=== PATIENT | female | born 1945 | race Caucasian/White ===

== ENCOUNTER 2016-11-28 14:06 | Observation (INO) | payer MEDICARE, MEDICAID ==
--- NOTE | 2016-11-28 15:04 | RAD ---
Study: Frontal and Lateral Views of the Chest. Indication: syncope Comparison: December 21, 2008. Impression: Cardiomegaly. Thoracic aorta tortuous without atherosclerotic calcification. Mild bibasilar atelectasis. Otherwise, lungs clear. Degenerative changes of the spine noted. Electronically signed by: Darryl Trujillo MD 11/28/2016 15:03
--- NOTE | 2016-11-28 15:04 | CT ---
Study: CT of the Head. Indication: syncope Technique: Axial CT images of the head were acquired without intravenous contrast. Comparison: None. Findings: No CT evidence of acute ischemia, acute hemorrhage, mass, mass effect, midline shift, or extra-axial fluid collection. Ventricles are normal in configuration without hydrocephalus. Brain parenchyma demonstrates a normal appearance for patient age. Paranasal sinuses are adequately aerated. Mastoid air cells are adequately aerated. Large left frontal subcutaneous hematoma noted without underlying fracture. Impression: 1. No CT evidence of acute intracranial abnormality. 2. Large left frontal subcutaneous hematoma without underlying fracture. Electronically signed by: Darryl Trujillo MD 11/28/2016 15:02
[2016-11-28] MEDS ORDERED: cloNIDine HCL 0.1 MG TAB PO ONE (17:20)
--- NOTE | 2016-11-28 17:24 | ED.PDOC ---
History of Present Illness - General Chief Complaint: Trauma Stated Complaint: fall, hit face Time Seen by Provider: 11/28/16 14:17 Source: patient Exam Limitations: no limitations - History of Present Illness Initial Comments: the patient is 71-year-old female presenting to the emergency room secondary to syncopal episode while sitting down at the lunch table. As she was passing out she had her head on the table and sustained a three-quarter and laceration above the left eyebrow as well as a small contusion over the nasal bridge and a few small abrasions over the nose. No other injuries from the fall. She has not had previous syncopal episodes. She had no chest pains or palpitations. She had no shortness of breath. Syncope was only momentary. It was witnessed. Other than being sore she feels just fine now. She is alert and oriented 4 and neurologically intact. She does have a history of high blood pressure and takes her medications primarily at night. She had not eaten lunch yet and had apparently only had a small breakfast. Timing/Duration: momentarily Severity: moderate Improving Factors: nothing Worsening Factors: nothing Associated Symptoms: denies symptoms Allergies/Adverse Reactions: Allergies NO KNOWN ALLERGY Allergy (Verified 11/28/16 14:47) Review of Systems - Review of Systems Constitutional: States: no symptoms reported EENTM: States: nose pain Respiratory: States: no symptoms reported Cardiology: States: no symptoms reported Gastrointestinal/Abdominal: States: no symptoms reported Genitourinary: States: no symptoms reported Musculoskeletal: States: no symptoms reported Skin: States: see HPI Neurological: States: no symptoms reported All other Systems: No Change from Baseline Past Medical History (General) - Patient Medical History Hx Stroke: No Hx Congestive Heart Failure: No Hx Hypertension: Yes Hx Diabetes: No - Vaccination History Hx Tetanus, Diphtheria Vaccination: No Hx Influenza Vaccination: No Hx Pneumococcal Vaccination: No - Social History Hx Tobacco Use: No Family Medical History - Family History Mother Living Status: Cause of : cancer, unknown primary Hx Family;Other: dementia Physical Exam - Physical Exam General Appearance: Alert, Comfortable, No apparent distress Eye Exam: bilateral normal Ears, Nose, Throat: hearing grossly normal, other - the patient has mild epistaxis from the right nares. She has some bruising over the proximal nasal bridge. She has very small abrasion to the proximal and distal nose. These do not require any repair. No bony deformity otherwise. Neck: full range of motion, supple, normal inspection Respiratory: chest non-tender, lungs clear, normal breath sounds, no respiratory distress, no accessory muscle use Cardiovascular/Chest: normal peripheral pulses, regular rate, rhythm, no edema Peripheral Pulses: radial,right: 2+, radial,left: 2+ Gastrointestinal/Abdominal: normal bowel sounds, non tender, soft Rectal Exam: deferred Back Exam: normal inspection, no CVA tenderness, no vertebral tenderness Extremity: normal range of motion, non-tender, normal inspection, no pedal edema , normal capillary refill Neurologic: alert, normal mood/affect, oriented x 3 Skin Exam: normal color Comments: Vital Signs - 24 hr 11/28/16 14:12 Temperature 99.2 F Pulse Rate [ 72 Left Radial] Respiratory 20 Rate Blood Pressure 146/66 [Right Arm] O2 Sat by Pulse 91 L Oximetry Progress - Progress Progress: 11/28/16 17:26 the patient is 71 years old with a syncopal episode. Repeat cardiac enzymes are negative. Source of syncope is uncertain. She is moderately hypertensive and is receiving a dose of clonidine. of note however,on tilt testing, the patient does have a 40 point drop in her systolic blood pressure with standing. She is still technically normotensive with this but there is a significant drop. There is no compensatory tachycardia. She is asymptomatic with it. current hypertension may be reactive due to the fall. She does have some EKG changes that are not necessarily acute. for this reason I would like her to be monitored on telemetry monitoring for the next 24 hours. She will need carotid Dopplers at some point. The patient has agreed to this plan. 11/28/16 17:29 three-quarter inch superficial laceration above the left eyebrow:risk and benefits of repair explained and patient agrees to proceed. Wound is cleaned with hydrogen peroxide. Dermabond used for reapproximation. Patient tolerated repair well. Good hemostasis. 11/28/16 17:31 - Results/Orders Results/Orders: Laboratory Tests 11/28/16 11/28/16 11/28/16 14:18 14:55 16:45 WBC 8.5 RBC 5.06 Hgb 14.6 Hct 44.8 MCV 88.5 MCH 28.8 MCHC 32.5 L RDW 14.7 H Plt Count 116 L MPV 8.8 Absolute Neuts (auto) 5.50 Absolute Lymphs (auto) 2.10 Absolute Monos (auto) 0.60 Absolute Eos (auto) 0.20 Absolute Basos (auto) 0.00 Neutrophils % 65.4 Lymphocytes % 25.1 Monocytes % 6.6 Eosinophils % 2.5 Basophils % 0.4 PT 11.5 INR 1.020 PTT (SP) 34.4 Sodium 141 Potassium 4.0 Chloride 106 Carbon Dioxide 28 Anion Gap 11.0 L BUN 22 H Creatinine 0.75 BUN/Creatinine Ratio 29.3 H Random Glucose 124 H Serum Osmolality 286.0 Calcium 9.1 Magnesium 1.8 Total Bilirubin 1.7 H AST 26 ALT 13 Alkaline Phosphatase 56 Creatine Kinase 78 109 CK-MB (CK-2) 2.0 2.2 CK-MB (CK-2) % Not Reportable Not Reportable Troponin I < 0.02 < 0.02 B-Natriuretic Peptide 54.2 Serum Total Protein 7.5 Albumin 3.7 Globulin 3.8 H Albumin/Globulin Ratio 1.0 L urinalysis is still pending. EKG shows poor R-wave progression in anterior leads. We do not have an old EKG to compare to. Normal sinus rhythm. Normal axis. Head CT shows no evidence of any acute pathology or hydrocephalus. No evidence of fracture. Chest x-ray shows no acute changes. No infiltrate. No pneumothorax. No significant cardiomegaly. Departure - Departure Clinical Impression: Syncope Qualifiers: Syncope type: unspecified Qualifier Code: (R55) Syncope and collapse Laceration of head Qualifiers: Encounter type: initial encounter Location of open wound of head: periocular area Foreign body presence: without foreign body Laterality: left Qualifier Code : (S01.112A) Laceration without foreign body of left eyelid and periocular area , initial encounter Disposition: Admit Patient Departure Forms: ED Discharge - Pt. Copy, Patient Portal Self Enrollment Decision To Admit - Decistion To Admit Decision to Admit Reason: Medical Nature Decision to Admit Date: 11/28/16 Decision to Admit Time: 17:30
--- NOTE | 2016-11-28 18:39 | HP ---
HISTORY OF PRESENT ILLNESS: This 71-year-old, white female was admitted to the hospital via the Emergency Room after sudden loss of consciousness while sitting down and eating some food at about 1:30 PM this afternoon. She was at home alone at the time in her kitchen with her daughter outside. She got lightheaded and then with no memory of it, falling to the floor, striking the left side of her head on the floor. She awoke before her daughter came in to find her and was able to be fairly alert at that time. No previous history of similar syncopal episodes in the past. No history of cardiac rhythm disturbances. She does have a history of high blood pressure on Bystolic. She is followed closely in [facility] and has been for a number of years care for by Dr. Solis in the clinic. She is placed in the hospital for overnight observation and further investigation to rule out other significant causes contributing to her symptoms. Of note is that in the Emergency Room, the did a tilt blood pressure, pulse and she had over 45 systolic point decrease from supine to standing, yet her pulse stayed the same, suggesting an autonomic dysfunction. PAST MEDICAL HISTORY: 1. Hypertension. 2. She has had 6 children. PAST SURGICAL HISTORY: 1. Gallbladder. 2. Bilateral tubal ligation in 1972. FAMILY HISTORY: Positive for diabetes. SOCIAL HISTORY: She has worked in the service industry with food prep, dish cleaning and homemaking. She has never smoked. REVIEW OF SYSTEMS: CONSTITUTIONAL: Her weight has been over 300 pounds up until 6 years ago and now she is at a lower weight, but she does not know what her weight is now, but she has been trying to lose weight. HEENT: No hearing or vision disturbances. LUNGS: No significant shortness of breath, cough, or hemoptysis. CARDIOVASCULAR: No palpitations or chest pains. ABDOMEN: No nausea, vomiting, diarrhea, or blood in the stools. GENITOURINARY: No dysuria. NEUROLOGIC: No significant headache except where she fell this evening and the syncopal episode has not been present in the past. PHYSICAL EXAMINATION: VITAL SIGNS: Afebrile. Pulse 75. Blood pressure 141/94, up to 141/110 with pulse oximetry around 93% room air. Respirations 20. Weight to be taken. GENERAL: The patient is fairly awake, alert and oriented. She is a good historian. HEENT: She has a large ecchymosis and swelling around the left eye with some skin lacerations, which have been repaired with skin adhesives. Mild conjunctival irritation is evident on the left. NECK: Supple with no adenopathy. CHEST: Lungs generally clear to auscultation. Able to breathe deeply with no cough. CARDIOVASCULAR: No irregular pulses evident. Heart tones otherwise normal. ABDOMEN: Obese, soft, no organomegaly, masses or tenderness noted upon palpation. Bowel tones present. EXTREMITIES: Fairly good muscle tone. NEUROLOGIC: No focal neurological deficits. The patient is awake, alert, oriented and communicative. Loss of consciousness noted earlier this afternoon with syncope. LABORATORY: White count 8,500, hemoglobin 14.6. INR 1.02. Chemistries show potassium 4, BUN 22, creatinine 0.75, glucose 124, magnesium 1.8, bilirubin 1.7. Liver enzymes normal. Troponin 0. Beta natriuretic peptide 54. Albumin 3.7. Urinalysis pending. CT of the head does reveal large frontal subcutaneous hematoma without underlying fracture. No acute intracranial abnormalities noted. Chest x-ray is performed and shows cardiomegaly with aortic calcification with lungs clear except for some bibasilar atelectasis. ASSESSMENT: 1. Acute syncopal episode, new onset with loss of consciousness. 2. Blunt head injury with large laceration, repaired around the left orbit with hematoma and ecchymosis. 3. Positive blood pressure-pulse tilt, suggesting autonomic dysfunction. 4. Hypertension. 5. Obesity. PLAN: The patient is placed in the hospital for observation overnight with telemetry and close nursing neuro vitals. Suggest carotid ultrasound in the morning. Repeat cardiac enzymes in the morning. Try sequential compression devices tonight. Soft diet. Observe closely with some cool compresses to the swollen eye and close followup in [facility] upon discharge when stable. #[id number] [facility]
[2016-11-28] MEDS ORDERED: MAGNESIUM HYDROXIDE 30 ML UD PO PRN (19:00)
[2016-11-28] MEDS ORDERED: IV SET AND CAP CHANGE INJ INJ SCH (19:00)
[2016-11-28] MEDS ORDERED: SODIUM CHLORIDE 0.9% (FLUSH) 10 ML SYG IV PRN (19:00)
[2016-11-28] MEDS ORDERED: ACETAMINOPHEN 325 MG TAB PO PRN (19:00)
[2016-11-28] MEDS: SODIUM CHLORIDE 0.9% 1000ML 1,000 ML IVS PRN (19:57)
[2016-11-28] MEDS ORDERED: NEBIVOLOL 2.5 MG TAB ONE (19:59)
[2016-11-28] MEDS: MELOXICAM 7.5 MG TAB PO SCH (20:31)
[2016-11-28] MEDS: NEBIVOLOL 2.5 MG TAB PO SCH (20:31)
[2016-11-28] MEDS: traZODone HCL 100 MG TAB PO SCH (20:31)
[2016-11-28] MEDS: POTASSIUM CHLORIDE 10 MEQ TAB PO SCH (20:31)
[2016-11-29] MEDS: OMEPRAZOLE CAP 20 MG CAP PO SCH (06:05)
[2016-11-29] MEDS ORDERED: FUROSEMIDE 40 MG TAB ONE (07:18)
[2016-11-29] MEDS: FUROSEMIDE 40 MG TAB PO SCH (08:54)
[2016-11-29] MEDS ORDERED: LISINOPRIL 5 MG TAB PO SCH (09:00)
[2016-11-29] MEDS ORDERED: LISINOPRIL 10 MG TAB PO ONE (09:18)
[2016-11-29] MEDS ORDERED: LISINOPRIL 10 MG TAB ONE (09:25)
[2016-11-29] MEDS ORDERED: SODIUM CHL 0.9% 50ML MIN-BAG+ 50 ML IVPB ONE ×2 (09:25→20:55)
[2016-11-29] MEDS ORDERED: cefTRIAXone SODIUM 1 GM VIAL ONE ×2 (09:26→20:56)
[2016-11-29] MEDS: cefTRIAXone SODIUM 1 GM in SODIUM CHL 0.9% 50ML MIN-BAG+ 50 ML IVPB SCH ×2 (09:27→21:00)
--- NOTE | 2016-11-29 11:09 | US ---
EXAM DESCRIPTION: US CAROTID DOPPLER BILATERAL CLINICAL HISTORY: syncope with LOC COMPARISON: None Available. TECHNIQUE: Carotid Doppler ultrasound FINDINGS: Carotid Doppler ultrasound demonstrates scattered areas of calcified plaque formation in both carotid bulbs and bifurcations. Duplex waveforms and flow velocities are within normal standards on both sides with no Doppler indication of hemodynamically significant stenosis. Visual measurement of area stenosis in the right carotid bulb is 42%. Visual measurement of area stenosis in the left carotid bulb 38% and left ICA 36%. Both vertebrals are patent with antegrade flow. IMPRESSION: 1. Calcific atherosclerosis with no hemodynamically significant stenosis observed. Electronically signed by: Terrell Najera MD 11/29/2016 11:07
[2016-11-29] MEDS: SODIUM CHLORIDE 0.9% 1000ML 1,000 ML IVS PRN (14:21)
--- NOTE | 2016-11-29 20:03 | PN ---
DATE: 11/29/16 SUPERVISING PHYSICIAN: Raulito Ly M.D. SUBJECTIVE: The patient is sitting up in her bed watching televising. She has no complaints of chest pain, shortness of breath, dizziness, headache, nausea or vomiting. She does state that the bruising on her eyes hurt, but other than that she is feeling much better. OBJECTIVE: VITAL SIGNS: She is afebrile, pulse rate 72, blood pressure 191/75, respiratory rate 18, O2 sat 90% on room air. GENERAL: This is a 71 year-old female who is in no acute distress. HEENT: She continues to have a large amount of ecchymosis and edema around both eyes, but the left eye is slightly more edematous than the right eye. She also has several skin lacerations. There is no drainage or erythema noted. CHEST: Essentially clear to auscultation. CARDIOVASCULAR: Regular rate and rhythm. ABDOMEN: Soft. She is obese, nondistended, non-tender. Bowel sounds are present. NEUROLOGIC: She is awake, alert and oriented times three. She has had no loss of consciousness or syncope since admission. LABORATORY: Sodium 144, potassium 4, chloride 110, BUN 26, creatinine 0.62, creatinine kinase 206. The remainder of her third set of cardiac enzymes are negative. TSH 144. WBC 8.6, hemoglobin 13, hematocrit 39.6. Preliminary urine culture shows gram negative rods. Carotid ultrasound shows calcific atherosclerosis with no hemodynamically significant stenosis observed. All other labs and films have been reviewed via the EMR. ASSESSMENT: 1. Acute syncopal episode, new onset with loss of consciousness. 2. Blunt head injury with large laceration repair around the left orbit with hematoma and ecchymosis. 3. Positive blood pressure pulse tilt. 4. Hypertension. 5. Obesity. PLAN: The patient's blood pressure has run significantly high today in the 160s to 170s. I have added Lisinopril earlier today and have increased it to 20 mg daily tomorrow. We will watch her heart rate overnight and make sure there are no rhythm issue that could have caused her syncopal episode. I have also started some Rocephin for her urinary tract infection. She is a patient of Frances Cole at [facility]. She has an appointment with her on December 07. Hopefully we can discharge her tomorrow. She can have close followup for her blood pressure and further testing for her syncopal episode. [employer] Operator has spoken to her today. She lives with her brother and at this point she does not want Home Health. We will continue to encourage good pulmonary toilet as well as frequent ambulation in the halls. We will continue to monitor her overnight. Hopefully she can be discharged tomorrow. Dr. Ly is the collaborating physician and available for consultation. #[id number] [facility]
[2016-11-29] MEDS: POTASSIUM CHLORIDE 10 MEQ TAB PO SCH (20:59)
[2016-11-29] MEDS: NEBIVOLOL 2.5 MG TAB PO SCH (20:59)
[2016-11-29] MEDS: MELOXICAM 7.5 MG TAB PO SCH (20:59)
[2016-11-29] MEDS: traZODone HCL 100 MG TAB PO SCH (20:59)
[2016-11-30 02:53] VITALS: O2SAT 90
[2016-11-30] MEDS: OMEPRAZOLE CAP 20 MG CAP PO SCH (06:08)
[2016-11-30] MEDS ORDERED: cefTRIAXone SODIUM 1 GM VIAL ONE (06:56)
[2016-11-30] MEDS ORDERED: SODIUM CHL 0.9% 50ML MIN-BAG+ 50 ML IVPB ONE (06:56)
[2016-11-30] MEDS: SODIUM CHLORIDE 0.9% 1000ML 1,000 ML IVS PRN (08:40)
[2016-11-30] MEDS ORDERED: LISINOPRIL 10 MG TAB PO SCH ×2 (09:00)
[2016-11-30] MEDS: cefTRIAXone SODIUM 1 GM in SODIUM CHL 0.9% 50ML MIN-BAG+ 50 ML IVPB SCH (09:00)
[2016-11-30] MEDS: FUROSEMIDE 40 MG TAB PO SCH (09:01)
[2016-11-30 09:12] VITALS: BP 146/80; TEMP 97.9
--- NOTE | 2016-11-30 19:09 | DS ---
SUPERVISING PHYSICIAN: Raulito Ly M.D. DISCHARGE DIAGNOSIS: 1. Acute syncopal episode new onset with loss of consciousness. 2. Blunt head injury with large laceration repair around the left orbit with hematoma and ecchymosis on bilateral eyes. 3. Positive blood pressure and pulse tilt. 4. Hypertension. 5. Obesity. 6. Urinary tract infection that is positive for Klebsiella pneumoniae. HISTORY OF PRESENT ILLNESS: This is a 71 year-old female patient who presented to the Emergency Room on date of admission with sudden loss of consciousness while sitting down and eating some food at 1:30 on the date of admission. She was at home alone at the time in her kitchen and her daughter was outside. She said she got light-headed but then has no memory of falling to the floor and striking the left side of her head on the floor. She did awaken before her daughter came in to find her and was able to be fairly coherent at that time. She has no previous history of a similar syncopal episode in the past. She has no history of cardiac rhythm disturbances. She does have a history of high blood pressure and she is presently on Bystolic. She is being followed closely at [facility]. She was placed in the hospital for overnight observation and further investigation to rule out any other significant causes that could have contributed to her symptoms. It is of note that in the Emergency Room they did a tilt blood pressure with pulse and she had an over 45 mmHg systolic point decrease from supine to standing, but her pulse stayed the same. HOSPITAL COURSE: Overnight she had no further symptoms of dizziness, light- headedness or loss of consciousness. Heart rate remained stable as well as her vital signs, although her blood pressure did get up with a systolic up into the 190s. Lisinopril was added to her medication regimen and she tolerated that well. Her carotid ultrasound showed calcific atherosclerosis with no hemodynamically significant stenosis. Other than her blood pressure being somewhat elevated, her other vital signs were stable. It should be noted that her oxygen saturations on room air stayed in the low 90s. The patient has stated she wants to go home and at this point I believe she is stable enough for discharge. DISCHARGE PLAN: She will be discharged in stable condition home. She is to resume her previous activities. She lives with her brother at this time so there is someone available to help her. She did refuse any Home Health at this time. She has a followup with Frances Guadalupe at [facility] on at 11:00. I have continued her on Ciprofloxacin for her urinary tract infection. She received IV Levaquin in the hospital. She will be discharged on renal dose Cipro. I will also discharge her on her new Lisinopril. She may need a cardiac workup, although she did not have any issues with her cardiac rhythm changing or her rate dropping during her admission. Dr. Ly is the collaborating physician available for consultation. DISCHARGE MEDICATIONS: 1. Trazodone. 2. Crestor. 3. Meloxicam. 4. Furosemide. 5. Bystolic. 6. Potassium chloride. 7. Ciprofloxacin. 8. Lisinopril. #[id number] [facility]
== END 2016-11-30 12:35 | disposition home or self-care (01) ==
LOC: ER 14:06 → MS 18:10
PROVIDERS: ADMIT Emergency Medicine; ATTEND Emergency Medicine
DX: S06.2X1A Diffuse traumatic brain injury with loss of consciousness of 30 minutes or less, initial encounter (principal); N39.0 Urinary tract infection, site not specified; B96.1 Klebsiella pneumoniae [K. pneumoniae] as the cause of diseases classified elsewhere; S01.112A Laceration without foreign body of left eyelid and periocular area, initial encounter; R40.2412 Glasgow coma scale score 13-15, at arrival to emergency department; I10 Essential (primary) hypertension; E66.9 Obesity, unspecified; W07.XXXA Fall from chair, initial encounter; Y92.001 Dining room of unspecified non-institutional (private) residence as the place of occurrence of the external cause; Z68.41 Body mass index [BMI] 40.0-44.9, adult; Z79.1 Long term (current) use of non-steroidal anti-inflammatories (NSAID); Z79.899 Other long term (current) drug therapy; Z83.3 Family history of diabetes mellitus
CPT/HCPCS: 36415 ×4; 70450; 71020; 80048 ×2; 80053; 81001; 82550 ×3; 82553 ×3; 83735; 83880; 84443; 84484 ×3; 85025 ×2; 85610; 85651; 85730; 87086; 87088; 87186; 93005; 93880; 94760 ×4; 96365; 96366 ×2; 97001; 97116; 99284; G0378; G8978; G8979; G8980; J0696 ×3; J7030 ×3; J7050 ×3

== ENCOUNTER → 2017-05-26 | Outpatient (CLI) | payer MEDICARE, MEDICAID | LOC: YCFC.O 08:46 | PROVIDERS: ATTEND Nurse Practitioner Family | DX: E78.2 Mixed hyperlipidemia (principal); I10 Essential (primary) hypertension ==